=== PATIENT | female | born 1990 | race Caucasian/White ===

== ENCOUNTER 2016-08-20 16:58 | Outpatient (CLI) | payer OTHER ==
[2016-08-20 17:33] LABS: APPEARANCE,URINE SLIGHTLY-CLOUDY; BILIRUBIN,URINE NEGATIVE (NEGATIVE); GLUCOSE, URINE NEGATIVE (NEGATIVE); KETONES,URINE NEGATIVE (NEGATIVE); LEUKOCYTE ESTERASE,URINE NEGATIVE (NEGATIVE); NITRITE,URINE NEGATIVE (NEGATIVE); PROTEIN,URINE NEGATIVE (NEGATIVE); URINE SPECIFIC GRAVITY 1.008; UROBILINOGEN,URINE NEGATIVE mg/dL (<2.0)
[2016-08-20 17:40] LABS: WBC,URINE 0-1 /HPF
[2016-08-20 17:47] LABS: URINE BARBITURATES SCREEN NEGATIVE; URINE METHADONE SCREEN NEGATIVE; URINE OPIATES LOW NEGATIVE; URINE PHENCYCLIDINE SCREEN NEGATIVE
[2016-08-20 18:08] LABS: ABSOLUTE BASOPHILS # (AUTO) 0.1 10^3/uL (0.0-0.2); ABSOLUTE EOSINOPHILS # (AUTO) 0.3 10^3/uL (0.0-0.6); ABSOLUTE LYMPHOCYTES (AUTO) 2.4 10^3/uL (0.5-4.7); ABSOLUTE MONOCYTES (AUTO) 0.7 10^3/uL (0.1-1.4); ABSOLUTE NEUT (AUTO) 8.9 10^3/uL (1.7-8.2); BASOPHILS % (AUTO) 0.5 % (0-2); EOSINOPHILS % (AUTO) 2.1 % (0-6); HEMATOCRIT 32.8 % (36.0-47.0); HEMOGLOBIN 10.9 g/dL (12.0-15.5); HGB HCT DIFFERENCE -0.1; LYMPHOCYTES % (AUTO) 19.6 % (13-45); MEAN CORPUSCULAR HEMOGLOBIN 30.3 pg (27.0-33.4); MEAN CORPUSCULAR HGB CONC 33.3 g/dL (32.0-36.0); MEAN CORPUSCULAR VOLUME 91 fl (80-97); MONOCYTES % (AUTO) 5.8 % (3-13); RED BLOOD COUNT 3.61 10^6/uL (3.72-5.28); RED CELL DISTRIBUTION WIDTH 13.5 % (11.5-14.0); WHITE BLOOD COUNT 12.4 10^3/uL (4.0-10.5)
[2016-08-20 18:33] LABS: ALANINE AMINOTRANSFERASE 28 U/L (9-52); ALBUMIN 3.4 g/dL (3.5-5.0); ALKALINE PHOSPHATASE 88 U/L (38-126); ANION GAP 10 (5-19); ASPARTATE AMINO TRANSFERASE 18 U/L (14-36); BILIRUBIN,DIRECT 0.2 mg/dL (0.0-0.4); BILIRUBIN,TOTAL 0.6 mg/dL (0.2-1.3); BLOOD UREA NITROGEN 6 mg/dL (7-20); CARBON DIOXIDE 21 mmol/L (22-30); CHLORIDE 106 mmol/L (98-107); CREATININE RESULT 0.48 mg/dL (0.52-1.25); GLUCOSE 90 mg/dL (75-110); LDH 328 U/L (313-618); POTASSIUM 3.4 mmol/L (3.6-5.0); SODIUM 137.1 mmol/L (137-145); TOTAL PROTEIN 6.4 g/dL (6.3-8.2); URIC ACID 3.9 mg/dL (2.5-6.2)
--- NOTE | 2016-08-20 18:56 | Non Stress Test Report ---
Non Stress Test Datetime Report Generated by CPN: 08/20/2016 18:56 DEMOGRAPHIC Test Number: 1 EGA NST: 36.1 INDICATION Indication for Study: Ordered by Provider MONITORING Monitor Explained: Monitor Explained; Test Explained; Patient Verbalized Understanding Time on Monitor: 08/20/2016 17:18 Time off Monitor: 08/20/2016 17:59 NST Duration: 41 NST INTERVENTIONS NST Interventions: None Physician Notified NST: Dr. Ballard BABY A: [id number] BABY A Movement : Present Contraction Frequency : Irreg FHR Baseline : 135 Accelerations : 15X15 Decelerations : None Variability : Moderate 6-25bpm NST Review: Meets Criteria for Reactive NST NST Review and Verified By : Clarence Valdivia RN NST Results: Reactive NST REPORT Report Trigger: Send Report
--- NOTE | 2016-09-13 08:43 | L&D Progress Notes ---
PROGRESS NOTES Datetime Report Generated by CPN: 09/13/2016 08:43 PROGRESS NOTE Impression: Reassuring Heart Rate; Gest. HTN/PreEclampsia/Eclampsia Plan: Continue Present Management; Induction Informed Consent Obtained: Vaginal Delivery Vital Signs : Reviewed; Within Normal Limits Comment: Resting without c/o, Cat 1 strip, IOL for PIH, plans epidural and bottle feeding, hsb at BS, irregular uc's VAGINAL EXAM Dilatation: 2 Effacement: 90 Station: -1 MEMBRANES Membranes: Intact Membranes: Intact FETUS A FHR - Baseline: 150 Monitoring: External US Variability: Moderate 6-25bpm Accelerations: 15X15 Decelerations: None : 39.4 : 39.4 Presentation: Vertex SIGNATURE SIGNATURE: [id number];[id number] SIGNATURE: [id number] Assignment: Lupe Alberto MD Signature: with User ID: [email or web address] : with User ID: [email or web address]
--- NOTE | 2016-09-13 12:28 | L&D Progress Notes ---
PROGRESS NOTES Datetime Report Generated by CPN: 09/13/2016 12:28 PROGRESS NOTE Comment: C/O of increase uc's, VE 4/90/vtx/0, AROM, clear fluid, requesting epidural. Cat 1 strip, uc's q 3-4 FETUS A FHR - Baseline: 155 Monitoring: External US Variability: Moderate 6-25bpm Decelerations: None FETUS C SIGNATURE: [id number];[id number] Assignment: Lupe Alberto MD Signature: with User ID: [email or web address] : with User ID: [email or web address]
--- NOTE | 2016-09-13 13:56 | L&D Progress Notes ---
PROGRESS NOTES Datetime Report Generated by CPN: 09/13/2016 13:56 PROGRESS NOTE Vital Signs : Reviewed; Within Normal Limits Comment: epidural completed, no cervical change, no relief from epidural, breathing with uc's, Cat 1 strip with early decelerations Will medicate with Nubain FETUS C SIGNATURE: [id number];[id number] Assignment: Lupe Alberto MD Signature: with User ID: [email or web address] : with User ID: [email or web address]
== END 2016-08-20 18:50 | disposition home or self-care (01) ==
LOC: LC 16:58
PROVIDERS: ATTEND Student in an Organized Health Care Education/Training Program
PROC: 4A1HXCZ Monitoring of Products of Conception, Cardiac Rate, External Approach (ICD-10-PCS; principal; 2016-08-20)
DX: O47.03 False labor before 37 completed weeks of gestation, third trimester (principal); Z3A.36 36 weeks gestation of pregnancy
CPT/HCPCS: 36415; 59025; 80053; 80307; 81001; 83615; 84550; 85025

== ENCOUNTER 2016-09-13 06:01 | Inpatient (IN) | payer OTHER ==
[2016-09-13] MEDS ORDERED: RINGERS SOLUTION,LACTATED 1,000 ML IV PRN (06:10)
[2016-09-13] MEDS ORDERED: OXYTOCIN/NORMAL SALINE 1,000 ML IV PRN ×2 (06:10→15:01)
[2016-09-13] MEDS ORDERED: RINGERS SOLUTION,LACTATED 300 ML IV ONE (06:10)
[2016-09-13 07:09] LABS: ABSOLUTE EOSINOPHILS # (AUTO) 0.3 10^3/uL (0.0-0.6); ABSOLUTE LYMPHOCYTES (AUTO) 2.9 10^3/uL (0.5-4.7); ABSOLUTE MONOCYTES (AUTO) 0.7 10^3/uL (0.1-1.4); ABSOLUTE NEUT (AUTO) 8.9 10^3/uL (1.7-8.2); BASOPHILS % (AUTO) 0.3 % (0-2); HEMATOCRIT 33.6 % (36.0-47.0); HEMOGLOBIN 11.1 g/dL (12.0-15.5); HGB HCT DIFFERENCE -0.3; LYMPHOCYTES % (AUTO) 22.5 % (13-45); MEAN CORPUSCULAR HEMOGLOBIN 30.3 pg (27.0-33.4); MEAN CORPUSCULAR VOLUME 92 fl (80-97); MONOCYTES % (AUTO) 5.5 % (3-13); RED BLOOD COUNT 3.65 10^6/uL (3.72-5.28); RED CELL DISTRIBUTION WIDTH 13.9 % (11.5-14.0); SEGMENTED NEUTROPHILS % (AUTO) 69.7 % (42-78); WHITE BLOOD COUNT 12.7 10^3/uL (4.0-10.5)
[2016-09-13 07:16] LABS: ALANINE AMINOTRANSFERASE 19 U/L (9-52); ALBUMIN 3.3 g/dL (3.5-5.0); ALKALINE PHOSPHATASE 111 U/L (38-126); ANION GAP 11 (5-19); ASPARTATE AMINO TRANSFERASE 18 U/L (14-36); BILIRUBIN,DIRECT 0.2 mg/dL (0.0-0.4); BILIRUBIN,TOTAL 0.7 mg/dL (0.2-1.3); BLOOD UREA NITROGEN 7 mg/dL (7-20); CARBON DIOXIDE 18 mmol/L (22-30); CHLORIDE 107 mmol/L (98-107); CREATININE RESULT 0.48 mg/dL (0.52-1.25); GLUCOSE 135 mg/dL (75-110); LDH 328 U/L (313-618); POTASSIUM 3.8 mmol/L (3.6-5.0); SODIUM 136.4 mmol/L (137-145); TOTAL PROTEIN 6.2 g/dL (6.3-8.2); URIC ACID 4.1 mg/dL (2.5-6.2)
[2016-09-13] MEDS ORDERED: MISOPROSTOL 0.2 MG TABLET ONE (07:44)
[2016-09-13] MEDS ORDERED: LIDOCAINE 1% INJ-PF (10 MG/ML) 30 ML SDV ONE (07:45)
[2016-09-13] MEDS ORDERED: OXYTOCIN/NORMAL SALINE 20 UNIT/1,000 ML RTUINJ ONE (07:45)
[2016-09-13 11:09] LABS: APPEARANCE,URINE CLEAR; BILIRUBIN,URINE NEGATIVE (NEGATIVE); GLUCOSE, URINE NEGATIVE (NEGATIVE); KETONES,URINE NEGATIVE (NEGATIVE); LEUKOCYTE ESTERASE,URINE NEGATIVE (NEGATIVE); NITRITE,URINE NEGATIVE (NEGATIVE); PROTEIN,URINE NEGATIVE (NEGATIVE); URINE SPECIFIC GRAVITY 1.008; UROBILINOGEN,URINE NEGATIVE mg/dL (<2.0)
[2016-09-13 12:04] LABS: URINE BARBITURATES SCREEN NEGATIVE; URINE METHADONE SCREEN NEGATIVE; URINE OPIATES LOW NEGATIVE; URINE PHENCYCLIDINE SCREEN NEGATIVE
[2016-09-13] MEDS ORDERED: EPHEDRINE SULFATE INJ 50 MG/1 ML AMPULE ONE (12:53)
[2016-09-13] MEDS ORDERED: FENTANYL CITRATE INJ/PF 100 MCG/2 ML AMPUL ONE (12:53)
[2016-09-13] MEDS ORDERED: PHENYLEPHRINE HCL INJ/PF 10 MG/1 ML SDV ONE (12:53)
[2016-09-13] MEDS ORDERED: FENTANYL/BUPIVACAINE/NS/PF 200 MCG/100 ML RTUINJ EPI ONE (12:53)
[2016-09-13] MEDS ORDERED: BUPIVACAINE HCL 0.25 % INJ/PF (2.5 MG/1 ML) 30 ML VIAL ONE (12:54)
[2016-09-13] MEDS ORDERED: NALBUPHINE HCL INJ 10 MG/1 ML AMPULE INJ ONE (13:58)
[2016-09-13] MEDS ORDERED: NALBUPHINE HCL INJ 10 MG/1 ML AMPULE ONE (14:04)
[2016-09-13] MEDS ORDERED: GLYCERIN/WITCH HAZEL LEAF 1 EACH MED..PAD TP PRN (15:01)
[2016-09-13] MEDS ORDERED: ACETAMINOPHEN 650 MG SUPP.RECT PR PRN (15:01)
[2016-09-13] MEDS ORDERED: DIPH/PERTUSS(ACELL)/TETANUS VAC/PF 0.5 ML SYR (>=10YO) IM PRN (15:01)
[2016-09-13] MEDS ORDERED: MAGNESIUM HYDROXIDE SUSP 30 ML UDCUP PO PRN (15:01)
[2016-09-13] MEDS ORDERED: BENZOCAINE/MENTHOL AEROSOL SPRAY 56 ML TOP PRN (15:01)
[2016-09-13] MEDS ORDERED: PROMETHAZINE HCL INJ 25 MG/1 ML VIAL IV PRN (15:01)
[2016-09-13] MEDS ORDERED: NA PHOS,M-B/NA PHOS,DI-BA (ADULT) 133 ML ENEMA PR PRN (15:01)
[2016-09-13] MEDS ORDERED: DIPHENHYDRAMINE HCL 25 MG CAPSULE PO PRN (15:01)
[2016-09-13] MEDS ORDERED: PROMETHAZINE HCL 25 MG TABLET PO PRN (15:01)
[2016-09-13] MEDS ORDERED: DIBUCAINE 1% OINTMENT 28 GM TP PRN (15:01)
[2016-09-13] MEDS ORDERED: MISOPROSTOL 0.2 MG TABLET PR ONE (15:01)
[2016-09-13] MEDS ORDERED: ACETAMINOPHEN WITH CODEINE #3 TABLET PO PRN (15:01)
[2016-09-13] MEDS ORDERED: PROMETHAZINE HCL 25 MG SUPP.RECT PR PRN (15:01)
[2016-09-13] MEDS ORDERED: PSEUDOEPHEDRINE HCL 30 MG TABLET PO PRN (15:01)
[2016-09-13] MEDS ORDERED: MEASLES,MUMPS&RUBELLA VACC/PF 0.5 ML VIAL SUBCUT PRN (15:01)
--- NOTE | 2016-09-13 17:11 | Admission Physical ---
Datetime Report Generated by CPN: 09/13/2016 17:11 CURRENT ADMISSION Chief Complaint: Scheduled Induction of Labor Indication for Induction: Gestational HTN Admit Plan: Admit to Unit; Initiate Labor Induction Protocol ALLERGIES Medication Allergies: No Medication Allergies: Latex, Natural Rubber/MO/IRRITATION TO S (07/19/2015) Latex: Latex Allergies OBSTETRICAL HISTORY EDC: 09/16/2016 00:00 : 3 Para: 2 Term: 2 : 0 SAB: 0 IAB: 0 Ectopic: 0 Livin Cesareans: 0 VBACs: 0 Multiple Births: 0 Gestational Diabetes: No Rh Sensitization: No Incompetent Cervix: No WINIFRED: No Infertility: No ART Treatment: No Uterine Anomaly: No IUGR: No Hx Previous C/S: No Macrosomia: No Hx Loss/Stillborn: No PIH: Yes Hx : No Placenta Previa/Abruption: No Depression/PP Depression: No PTL/PROM: No Post Hemorrhage: No Current Procedures: Ultrasound Obstetrical History Comments: G1- 2011, 39 weeks NVD baby boy G2- 2013, 39 wks, NVD baby girl G3- current SEE RECORDS Alcohol: No Marijuana : No Cocaine: No Other Illicit Drugs: No Cigarettes: Former Smoker. 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 Surgery: No Heart Disease: No Hosp/Surgery: No Autoimmune Disorder: No Anesthetic Complications: No Kidney Disease: No Abnormal Pap Smear: No Neuro/Epilepsy: No Psychiatric Disorders: No Other Medical Diseases: Yes Hepatitis/Liver Disease: No Significant Family History: No Varicosities/Phlebitis: No Trauma/Violence : No Thyroid Dysfunction: No Medical History Comments: Crohn's Disease- diet controlled INFECTIOUS HISTORY Gonorrhea: No Genital Herpes: No Chlamydia: No Tuberculosis: No Syphilis: No Hepatitis: No HIV/AIDS Exposure: No Rash or Viral Illness: No HPV: No PHYSICAL EXAM General: Normal HEENT: Normal Neurologic: Normal Thyroid: Deferred Heart: Normal Lungs: Normal Breast: Deferred Back: Normal Abdomen: Normal Genitourinary Exam: Normal Extremities: Normal DTRs: Normal Pelvic Type: Adequate Vital Signs: Reviewed; Within Normal Limits VAGINAL EXAM Dilatation: 2 Effacement: 90 Station: -1 MEMBRANES Membranes: Intact Membranes: Intact FETUS A EGA: 39.4 Monitoring: External US FHR- Baseline: 140 Variability: Moderate 6-25bpm Accelerations: 15X15 Decelerations: None FHR Category: Category I Presentation: Vertex PLANS FOR LABOR AND DELIVERY Labor and Delivery: None Pain Management: Epidural Feeding Preference: Formula Benefit of Breast Feed Discussed: Yes Circumcision: N/A INFORMED CONSENT Informed Consent Obtained: Vaginal Delivery Signature: with User ID: [email or web address]
[2016-09-13] MEDS: DOCUSATE SODIUM 100 MG CAPSULE PO SCH (19:01)
[2016-09-13] MEDS: FERROUS SULFATE 325 MG TABLET PO SCH (19:01)
[2016-09-13] MEDS: ACETAMINOPHEN WITH CODEINE #3 TABLET PO PRN (19:24)
[2016-09-13] MEDS: IBUPROFEN 800 MG TABLET PO SCH (21:42)
[2016-09-13] MEDS: FAMOTIDINE 20 MG TABLET PO SCH (21:42)
[2016-09-14] MEDS: IBUPROFEN 800 MG TABLET PO SCH ×3 (06:15→21:08)
[2016-09-14 07:50] LABS: HEMATOCRIT 36.2 % (36.0-47.0); HEMOGLOBIN 11.7 g/dL (12.0-15.5); HGB HCT DIFFERENCE -1.1; MEAN CORPUSCULAR HEMOGLOBIN 30.5 pg (27.0-33.4); MEAN CORPUSCULAR HGB CONC 32.3 g/dL (32.0-36.0); MEAN CORPUSCULAR VOLUME 94 fl (80-97); RED BLOOD COUNT 3.84 10^6/uL (3.72-5.28); RED CELL DISTRIBUTION WIDTH 14.1 % (11.5-14.0); WHITE BLOOD COUNT 15.1 10^3/uL (4.0-10.5)
--- NOTE | 2016-09-14 08:54 | PDOC PROGRESS REPORT ---
Subjective-OB Subjective: Post Delivery Day: 26 year old. Denies any needs at this time Physical Exam (OB) Vital Signs: Temp Pulse Resp BP Pulse Ox 98.1 F 97 16 112/75 99 09/14/16 07:36 09/14/16 07:36 09/14/16 07:36 09/14/16 07:36 09/14/16 07:36 Intake & Output 09/13/16 09/14/16 09/15/16 06:59 06:59 06:59 Weight 78.4 kg - PIH/Pre-Eclampsia DTR's: 1 + Clonus: Negative Headache: Absent Epigastric Pain: No Visual Changes: No - Lochia Lochia Amount: Small 10-25 ml Lochia Color: Rubra/Red - Abdomen Description: Soft, Round Hernia Present: No Bowel Sounds: Normoactive Flatus Presence: Absent Stool: No Fundal Description: Firm, Midline Fundal Height: u/u - u/2 Objective-Diagnostic Laboratory: 09/14/16 07:02 09/13/16 06:31 09/13/16 09/14/16 10:34 07:02 WBC 15.1 H RBC 3.84 Hgb 11.7 L Hct 36.2 MCV 94 MCH 30.5 MCHC 32.3 RDW 14.1 H Plt Count 225 Urine Color YELLOW Urine Appearance CLEAR Urine pH 7.0 Ur Specific Kelly 1.008 Urine Protein NEGATIVE Urine Glucose (UA) NEGATIVE Urine Ketones NEGATIVE Urine Blood NEGATIVE Urine Nitrite NEGATIVE Ur Leukocyte Esterase NEGATIVE Urine WBC (Auto) 0
[2016-09-14] MEDS: SENNOSIDES/DOCUSATE 8.6-50 MG 1 EACH TABLET PO SCH (09:34)
[2016-09-14] MEDS: FERROUS SULFATE 325 MG TABLET PO SCH ×2 (09:34→18:23)
[2016-09-14] MEDS: PRENATAL VITAMIN W-O CA NO5/FE FUMARATE/FA CAPSULE PO SCH (09:35)
[2016-09-14] MEDS: DOCUSATE SODIUM 100 MG CAPSULE PO SCH ×2 (09:35→18:23)
[2016-09-14] MEDS: FAMOTIDINE 20 MG TABLET PO SCH ×2 (10:25→21:08)
[2016-09-14] MEDS: ACETAMINOPHEN WITH CODEINE #3 TABLET PO PRN (15:36)
[2016-09-15] MEDS: IBUPROFEN 800 MG TABLET PO SCH (06:13)
[2016-09-15 09:15] VITALS: BP 118/65
[2016-09-15] MEDS: PRENATAL VITAMIN W-O CA NO5/FE FUMARATE/FA CAPSULE PO SCH (10:41)
[2016-09-15] MEDS: FAMOTIDINE 20 MG TABLET PO SCH (10:41)
[2016-09-15] MEDS: SENNOSIDES/DOCUSATE 8.6-50 MG 1 EACH TABLET PO SCH (10:41)
[2016-09-15] MEDS: DOCUSATE SODIUM 100 MG CAPSULE PO SCH (10:41)
[2016-09-15] MEDS: FERROUS SULFATE 325 MG TABLET PO SCH (10:42)
--- NOTE | 2016-09-15 10:48 | PDOC DISCHARGE SUMMARY ---
Final Diagnosis Discharge Date: 09/15/16 - Final Diagnosis (1) Gestational [-induced] hypertension without significant proteinuria , unspecified trimester Is this a current diagnosis for this admission?: Yes (2) History of Crohn's disease Is this a current diagnosis for this admission?: Yes (3) Is this a current diagnosis for this admission?: Yes (4) Vaginal delivery Is this a current diagnosis for this admission?: Yes Discharge Data - Discharge Medication Home Medications: Pnv No.122/Iron/Folic Acid [ Multi Tablet] 1 tab PO DAILY 08/20/16 Ibuprofen [Motrin 800 mg Tablet] 800 mg PO Q8HP PRN #60 tablet 09/15/16 Reason(s) for Admission: Induction of Labor Procedures: NST, Ultrasound Intrapartum Procedure(s): Spontaneous Vaginal Delivery - Diagnosis Test Laboratory: Temp Pulse Resp BP Pulse Ox 98.0 F 85 16 118/65 96 09/15/16 08:12 09/15/16 08:12 09/15/16 08:12 09/15/16 08:12 09/15/16 08:12 09/13/16 09/13/16 09/14/16 06:31 10:34 07:02 RBC 3.65 L 3.84 Hgb 11.1 L 11.7 L Hct 33.6 L 36.2 Urine Opiates Screen NEGATIVE - Discharge information/Instructions Discharge Activity: Activity As Tolerated, No Lifting Over 10 Pounds, No Lifting /Push/Pulling, Pelvic Rest, Slowly Increase Activity, No tub bath Discharge Diet: Regular Disposition: HOME, SELF-CARE Follow up with: [facility] in: 1, Weeks - blood pressure check
--- NOTE | 2016-09-19 10:56 | Delivery Summary ---
Del Sum A-C Datetime Report Generated by CPN: 09/19/2016 10:56 DELIVERY PERSONNEL DELIVERY PERSONNEL: [id number];[id number];[id number] DELIVERY PERSONNEL: [id number];[id number] DELIVERY PERSONNEL: [id number];[id number] DELIVERY PERSONNEL: [id number];[id number] DELIVERY PERSONNEL: [id number] Delivery Doctor:: Breann Brice CNM Labor and Delivery Nurse:: Brandi Higginbotham RN Nursery Nurse:: Nicole Angulo RN Nursery Nurse:: hiram brooks RN [facility] Products Assembler/HAT FORMING MACHINE OPERATOR: Regine Hester CNA II MATERNAL INFORMATION Delivery Anesthesia: Epidural Medications After Delivery: Pitocin Bolus-Please Comment; Pitocin Drip 20 Units/1000ml NSS Estimated Blood Loss (ml): 300 Maternal Complications: None Provider Comments: Progressed quickly after Nubain, strong urge to push. viable female from OA to PATRICK over intact perineum, baby placed on mothers abd, cord clamped and cut after 2 minutes. Spont delivery of grossly normal intact placenta, 3 VC EBL 300cc. Baby and mom remain in recovery in stable condition. Cytotec 600 mcg via rectum , massage and IV Pitocin (Annotations: Data stored by [facility] on behalf of user) LABOR SUMMARY EDC: 09/16/2016 00:00 No. Babies in Womb: 1 Attempted: No Labor Anesthesia: Epidural LABOR INFORMATION Reason for Induction: Other Reason for Induction- Other: PIH Onset of Labor: 09/13/2016 12:24 Complete Dilatation: 09/13/2016 14:30 Oxytocin: Induction Group B Beta Strep: Negative Antibiotics # of Doses: 0 Steroids Given: None Reason Steroids Not Administered: Not Applicable MEMBRANES Membranes Rupture Method: Artificial Rupture of Membranes: 09/13/2016 12:24 Length of Rupture (hr): 2.28 Amniotic Fluid Color: Clear Amniotic Fluid Color: Clear Amniotic Fluid Amount: Moderate Amniotic Fluid Amount: Small Amniotic Fluid Odor: None STAGES OF LABOR Stage 1 hr: 2 Stage 1 min: 6 Stage 2 hr: 0 Stage 2 min: 11 Stage 3 hr: 0 Stage 3 min: 5 Total Time in Labor hr: 2 Total Time in Labor min: 22 VAGINAL DELIVERY Episiotomy: None Episiotomy: Median Laceration Extension: N/A Laceration Type: None Laceration Repair: Not Applicable Sponge Count Correct: N/A Sponge Count Correct: N/A Sharps Count Correct: N/A CSECTION DELIVERY Primary Indication: N/A Secondary Indication: N/A BABY A INFORMATION Delivery Date/Time: 09/13/2016 14:41 Method of Delivery: Vaginal Method of Delivery: Vaginal Born in Route : No : N/A Forceps: N/A Vacuum Extraction: N/A Shoulder Dystocia : No PRESENTATION/POSITION BABY A Presentation: Cephalic Presentation: Cephalic Cephalic Presentation: Vertex Vertex Position: Right Occipital Anterior Breech Presentation: N/A PLACENTA INFORMATION BABY A Placenta Delivery Time : 09/13/2016 14:46 Placenta Method of Delivery: Spontaneous Placenta Method of Delivery: Spontaneous Placenta Status: Delivered SCORES BABY A Heart Rate 1 min: >100 bpm Resp Effort 1 min: Good Cry Reflex Irritability 1 min: Cough or Sneeze or Pulls Away Muscle Tone 1 min: Active Motion Color 1 min: Body [place], Extremities Blue Resuscitation Effort 1 min: Tactile Stimulation SCORE 1 MIN: 9 Heart Rate 5 min: >100 bpm Resp Effort 5 min: Good Cry Reflex Irritability 5 min: Cough or Sneeze or Pulls Away Muscle Tone 5 min: Active Motion Color 5 min: Body [place], Extremities Blue Resuscitation Effort 5 min: N/A SCORE 5 MIN: 9 Resuscitation Effort 10 min: N/A INFORMATION BABY A Gestational Age at Delivery: 39.4 Gestational Status: Full Term- 39- 40.6 Weeks Outcome : Liveborn Infant Condition : Stable Sex: Female Sex: Female IDENTIFICATION BABY A Verification Date/Time: 09/13/2016 15:03 ID Band Number: [id number] Mother's Name Verified: Yes Infant RN Verifying : Brandi Higginbotham, RN Additional Verifying Personnel: Brenna Love, RN WEIGHT/LENGTH BABY A Infant Birthweight (gm): 3370 Weight (lb): 7 Infant Weight (oz): 7 Length (in): 19.50 Infant Length (cm): 49.53 CORD INFORMATION BABY A No. Cord Vessels: 3 Nuchal Cord : N/A Cord Blood Taken: Yes-For Eval (Mom's Blood Type - or O+) Suction: None ASSESSMENT BABY A Complications: None Skin to Skin: Yes Skin to Skin Time (min): 64 Streetsweeper Operator/ALS Called : No Infant Care By: nursery nurses Transferred To: Nursery BABY B INFORMATION : N/A
== END 2016-09-15 12:23 | disposition home or self-care (01) | DRG 775 ==
LOC: LR 06:01 → 2S 17:09
PROVIDERS: ADMIT Specialist; ATTEND Specialist
PROC: 10E0XZZ Delivery of Products of Conception, External Approach (ICD-10-PCS; principal; 2016-09-13)
PROC: 10907ZC Drainage of Amniotic Fluid, Therapeutic from Products of Conception, Via Natural or Artificial Opening (ICD-10-PCS; 2016-09-13)
PROC: 3E033VJ Introduction of Other Hormone into Peripheral Vein, Percutaneous Approach (ICD-10-PCS; 2016-09-13)
PROC: 3E0234Z Introduction of Serum, Toxoid and Vaccine into Muscle, Percutaneous Approach (ICD-10-PCS; 2016-09-14)
DX: O13.4 Gestational [pregnancy-induced] hypertension without significant proteinuria, complicating childbirth (principal); O36.0930 Maternal care for other rhesus isoimmunization, third trimester, not applicable or unspecified; K50.90 Crohn's disease, unspecified, without complications; O99.62 Diseases of the digestive system complicating childbirth; Z3A.39 39 weeks gestation of pregnancy; Z37.0 Single live birth
CPT/HCPCS: 36415; 80053; 80307; 81001; 83615; 84550; 85025; 85027; 85461; 86592; 86850; 86900; 86901; 90715; 94760; J2300; J2370; J2590; J2790; J3010; J3490

== ENCOUNTER 2016-10-09 09:22 | Emergency (ER) | payer OTHER ==
[2016-10-09] MEDS ORDERED: LOPERAMIDE HCL 2 MG CAPSULE PO ONE (10:09)
[2016-10-09] MEDS ORDERED: IBUPROFEN 600 MG TABLET PO ONE (10:09)
--- NOTE | 2016-10-09 10:11 | ER Document Report ---
ED General - General Chief Complaint: Abdominal Pain Stated Complaint: ABDOMINAL PAIN,DIARRHEA,HEADACHE Time Seen by Provider: 10/09/16 10:03 Notes: 26-year-old female with history of Crohn's disease 1 month from delivery presents with intermittent lower abdominal pain crampy and sharp associated with copious diarrhea nonbloody for the past 24 hours. She ate last night. She has been drinking plenty of fluids and not nauseous or vomiting. She denies fever chills. She states that this does not feel like a Crohn's flare for her. There is no one else in the house. No recent antibiotics or foreign travel. TRAVEL OUTSIDE OF THE [place] IN LAST 30 DAYS: No - Related Data Allergies/Adverse Reactions: Latex, Natural Rubber Adverse Reaction (Intermediate, Verified 10/09/16 09:31) IRRITATION TO SKIN Past Medical History - Social History Smoking Status: Former Smoker Chew tobacco use (# tins/day): - 5 Frequency of alcohol use: None Drug Abuse: None Family History: None - Past Medical History Cardiac Medical History: Denies: Hx Coronary Artery Disease, Hx Heart Attack, Hx Hypertension Pulmonary Medical History: Denies: Hx Asthma, Hx Bronchitis, Hx COPD, Hx Pneumonia Neurological Medical History: Denies: Hx Cerebrovascular Accident, Hx Seizures Renal/ Medical History: Denies: Hx Peritoneal Dialysis GI Medical History: Reports: Hx Gastroesophageal Reflux Disease Musculoskeltal Medical History: Denies Hx Arthritis Surgical Hx: Negative - Immunizations Hx Diphtheria, Pertussis, Tetanus Vaccination: No Review of Systems - Review of Systems Notes: REVIEW OF SYSTEMS GEN: Denies fever, chills, weight loss ENT: Denies sore throat, nasal discharge, ear pain EYES: Denies blurry vision, eye pain, discharge CV: Denies chest pain, palpitations, edema RESP: Denies cough, shortness of breath, wheezing GI: Denies nausea vomiting MSK: Denies joint pain/swelling, edema, SKIN: Denies rash, skin lesions LYMPH: Denies swollen glands/lymph nodes NEURO: Denies headache, focal weakness or numbness, dizziness PSYCH: Denies depression, suicidal or homicidal ideation PHYSICAL EXAMINATION General: No acute distress, well-nourished playing with her baby in no acute distress. Head: Atraumatic, normocephalic ENT: Mouth normal, oropharynx moist, no exudates or tonsillar enlargement Eyes: Conjunctiva normal, pupils equal, lids normal Neck: No JVD, supple, no guarding CVS: Normal rate, regular rhythm, no murmurs Resp: No resp distress, equal and normal breath sounds bilaterally GI: Nondistended, soft, moderate delayed tenderness to palpation bilateral lower quadrants, no rebound or guarding Ext: No deformities, no edema, normal range of motion in upper and lower ext Back: No CVA or midline TTP Skin: No rash, warm Lymphatic: No lymphadeopathy noted Neuro: Awake, alert. Face symmetric. GCS 15. Physical Exam - Vital signs Vitals: Temp Pulse Resp BP Pulse Ox 98.6 F 106 H 16 125/86 H 97 10/09/16 09:28 10/09/16 09:28 10/09/16 09:28 10/09/16 09:28 10/09/16 09:28 Course - Re-evaluation Re-evalutation: 10/09/16 10:10 This is a 26-year-old female presenting with crampy abdominal pain and diarrhea most likely reflective of foodborne illness versus gastroenteritis. She has some nonfocal abdominal tenderness, and despite describing her pain is severe appears quite well and in no acute pain especially when moving about the gurney. She does not feel like this is a Crohn's flare. I will check labs give her some Imodium and ibuprofen but I do not believe she has appendicitis, abscess or other inflammation right related to Crohn's which would require imaging or specific treatment at this time. 10/09/16 10:47 Patient's lab results are resulted normal. Patient will be discharged with Imodium and Bentyl. She is given strict return precautions given her history of Crohn's but given her exam and labs and vitals today do not believe she has anything infectious or inflammatory going on. I have discussed with the patient there likely diagnosis, aftercare plan, follow -up plans and my usual and customary return precautions. They verbalized understanding of this. 10/09/16 10:51 - Vital Signs Vital signs: Temp Pulse Resp BP Pulse Ox 98.6 F 106 H 16 125/86 H 97 10/09/16 09:28 10/09/16 09:28 10/09/16 09:28 10/09/16 09:28 10/09/16 09:28 - Laboratory Result Diagrams: 10/09/16 09:56 10/09/16 09:56 Laboratory results interpreted by me: 10/09/16 10/09/16 10/09/16 09:56 09:56 10:27 Seg Neutrophils % 84.1 H Lymphocytes % 10.8 L Total Bilirubin 1.4 H Urine Blood SMALL H Ur Leukocyte Esterase SMALL H Discharge - Discharge Clinical Impression: Diarrhea Qualifiers: Diarrhea type: unspecified type Qualified Code(s): R19.7 - Diarrhea, unspecified Condition: Good Disposition: HOME, SELF-CARE Instructions: Abdominal Pain ([facility]), Antispasmodics ([facility]) Prescriptions: Dicyclomine HCl [Bentyl 10 mg Capsule] 1 cap PO TID #30 cap Loperamide HCl [Imodium A-D] 2 mg PO TID PRN 3 Days PRN Reason:
[2016-10-09 10:34] LABS: ALANINE AMINOTRANSFERASE 27 U/L (9-52); ALBUMIN 4.4 g/dL (3.5-5.0); ALKALINE PHOSPHATASE 81 U/L (38-126); ANION GAP 12 (5-19); ASPARTATE AMINO TRANSFERASE 21 U/L (14-36); BILIRUBIN,DIRECT 0.3 mg/dL (0.0-0.4); BILIRUBIN,TOTAL 1.4 mg/dL (0.2-1.3); BLOOD UREA NITROGEN 8 mg/dL (7-20); CALCIUM 9.5 mg/dL (8.4-10.2); CARBON DIOXIDE 23 mmol/L (22-30); CHLORIDE 105 mmol/L (98-107); CREATININE RESULT 0.84 mg/dL (0.52-1.25); GLUCOSE 106 mg/dL (75-110); LIPASE 115.4 U/L (23-300); POTASSIUM 3.9 mmol/L (3.6-5.0); SODIUM 139.7 mmol/L (137-145); TOTAL PROTEIN 7.6 g/dL (6.3-8.2)
[2016-10-09 10:42] LABS: ABSOLUTE LYMPHOCYTES (AUTO) 0.9 10^3/uL (0.5-4.7); ABSOLUTE MONOCYTES (AUTO) 0.4 10^3/uL (0.1-1.4); ABSOLUTE NEUT (AUTO) 7.3 10^3/uL (1.7-8.2); BASOPHILS % (AUTO) 0.4 % (0-2); EOSINOPHILS % (AUTO) 0.5 % (0-6); HEMOGLOBIN 13.9 g/dL (12.0-15.5); HGB HCT DIFFERENCE 1.7; LYMPHOCYTES % (AUTO) 10.8 % (13-45); MEAN CORPUSCULAR HGB CONC 34.6 g/dL (32.0-36.0); MONOCYTES % (AUTO) 4.2 % (3-13); RED BLOOD COUNT 4.47 10^6/uL (3.72-5.28); RED CELL DISTRIBUTION WIDTH 13.3 % (11.5-14.0); SEGMENTED NEUTROPHILS % (AUTO) 84.1 % (42-78); WHITE BLOOD COUNT 8.6 10^3/uL (4.0-10.5)
[2016-10-09 10:44] LABS: MEAN CORPUSCULAR VOLUME 90 fl (80-97)
[2016-10-09 10:45] LABS: APPEARANCE,URINE SLIGHTLY-CLOUDY; BILIRUBIN,URINE NEGATIVE (NEGATIVE); GLUCOSE, URINE NEGATIVE (NEGATIVE); KETONES,URINE NEGATIVE (NEGATIVE); LEUKOCYTE ESTERASE,URINE SMALL (NEGATIVE); NITRITE,URINE NEGATIVE (NEGATIVE); PROTEIN,URINE NEGATIVE (NEGATIVE); URINE SPECIFIC GRAVITY 1.015; UROBILINOGEN,URINE NEGATIVE mg/dL (<2.0)
[2016-10-09 11:11] VITALS: BP 109/68
== END 2016-10-09 11:10 | disposition home or self-care (01) ==
LOC: ER 09:22
DX: R10.9 Unspecified abdominal pain (principal); R19.7 Diarrhea, unspecified; R51 Headache; Z87.891 Personal history of nicotine dependence
CPT/HCPCS: 36415; 80053; 81001; 83690; 85025; 99284

== ENCOUNTER 2016-10-10 19:25 | Inpatient (IN) | payer OTHER ==
[2016-10-10 20:36] LABS: ABSOLUTE LYMPHOCYTES (AUTO) 1.5 10^3/uL (0.5-4.7); ABSOLUTE MONOCYTES (AUTO) 0.5 10^3/uL (0.1-1.4); ABSOLUTE NEUT (AUTO) 3.9 10^3/uL (1.7-8.2); BASOPHILS % (AUTO) 0.6 % (0-2); EOSINOPHILS % (AUTO) 0.7 % (0-6); HEMATOCRIT 36.9 % (36.0-47.0); HGB HCT DIFFERENCE 2.1; LYMPHOCYTES % (AUTO) 24.9 % (13-45); MEAN CORPUSCULAR HEMOGLOBIN 30.8 pg (27.0-33.4); MEAN CORPUSCULAR HGB CONC 35.2 g/dL (32.0-36.0); MEAN CORPUSCULAR VOLUME 88 fl (80-97); MONOCYTES % (AUTO) 7.8 % (3-13); RED BLOOD COUNT 4.22 10^6/uL (3.72-5.28); RED CELL DISTRIBUTION WIDTH 13.1 % (11.5-14.0); WHITE BLOOD COUNT 5.9 10^3/uL (4.0-10.5)
[2016-10-10] MEDS ORDERED: NORMAL SALINE 1000 ML 1,000 ML IV ONE (20:53)
--- NOTE | 2016-10-10 21:02 | ER Document Report ---
ED General - General Chief Complaint: Abdominal Pain Stated Complaint: ABDOMINAL PAIN Time Seen by Provider: 10/10/16 20:14 Notes: Patient is a 26-year-old female with a past medical history of Crohn's disease not currently on any immune suppressive who presents with 4-5 days of progressively worsening diffuse abdominal pain with associated diarrhea. She does describe her abdominal pain as a severe, almost constant, cramping pain. She was seen in the emergency department yesterday and at that time sent home with Imodium and Bentyl which she states has not improved her symptoms. Nothing seems to worsen her symptoms. She denies a history of similar symptoms in the past and states this does not feel prior Crohn's flares although her last flare was approximately 5 years ago. She has not spoken to her senior energy trader regarding her symptoms today. She denies any vomiting but does state that it is difficult to tolerate oral intake as anytime she eats or drinks anything it immediately prompted her to have severe diarrhea with associated abdominal cramping. TRAVEL OUTSIDE OF THE [place] IN LAST 30 DAYS: No - Related Data Allergies/Adverse Reactions: Latex, Natural Rubber Adverse Reaction (Intermediate, Verified 10/09/16 09:31) IRRITATION TO SKIN Past Medical History - General Information source: Patient - Social History Smoking Status: Never Smoker Frequency of alcohol use: None Drug Abuse: None Lives with: Spouse/Significant other Family History: Reviewed & Not Pertinent Patient has suicidal ideation: No Patient has homicidal ideation: No - Past Medical History Cardiac Medical History: Denies: Hx Coronary Artery Disease, Hx Heart Attack, Hx Hypertension Pulmonary Medical History: Denies: Hx Asthma, Hx Bronchitis, Hx COPD, Hx Pneumonia Neurological Medical History: Denies: Hx Cerebrovascular Accident, Hx Seizures Renal/ Medical History: Denies: Hx Peritoneal Dialysis GI Medical History: Reports: Hx Gastroesophageal Reflux Disease Musculoskeltal Medical History: Denies Hx Arthritis - Immunizations Hx Diphtheria, Pertussis, Tetanus Vaccination: No Review of Systems - Review of Systems Notes: Constitutional: Negative for fever. HENT: Negative for sore throat. Eyes: Negative for visual changes. Cardiovascular: Negative for chest pain. Respiratory: Negative for shortness of breath. Gastrointestinal: Positive for abdominal pain diarrhea Genitourinary: Negative for dysuria. Musculoskeletal: Negative for back pain. Skin: Negative for rash. Neurological: Negative for headaches, weakness or numbness. 10 point ROS negative except as marked above and in HPI. Physical Exam - Vital signs Vitals: Temp Pulse BP Pulse Ox 99.1 F 106 H 123/76 98 10/10/16 19:43 10/10/16 19:43 10/10/16 19:43 10/10/16 19:43 Interpretation: Tachycardic Notes: PHYSICAL EXAMINATION: GENERAL: Appears uncomfortable but in no acute distress HEAD: Atraumatic, normocephalic. EYES: Pupils equal round and reactive to light, extraocular movements intact, sclera anicteric, conjunctiva are normal. ENT: nares patent, oropharynx clear without exudates. Dry mucous membranes. NECK: Normal range of motion, supple without lymphadenopathy LUNGS: Breath sounds clear to auscultation bilaterally and equal. No wheezes rales or rhonchi. HEART: Regular rate and rhythm without murmurs ABDOMEN: Soft, diffuse tenderness most focal to the right lower quadrant. Bowel sounds are hyperactive. Voluntary guarding throughout again most focal in the lower quadrants. EXTREMITIES: Normal range of motion, no pitting or edema. No cyanosis. NEUROLOGICAL: No focal neurological deficits. Moves all extremities spontaneously and on command. PSYCH: Normal mood, normal affect. SKIN: Warm, Dry, normal turgor, no rashes or lesions noted. Course - Re-evaluation Re-evalutation: 10/10/16 20:55 Patient presents with progressively worsening abdominal pain over the last 36 hours. Patient appears to be acutely uncomfortable, holding her abdomen. Abdominal exam does show focal right lower and suprapubic abdominal tenderness with rebound tenderness. She does have voluntary guarding throughout but again is most focal in the right lower quadrant. Vitals at time of assessment are within normal limits. Labs reviewed from yesterday are unremarkable including a negative test and negative urinalysis. Primary concern at this time is for possible acute appendicitis, regional colitis in the setting of Crohn's flare with an associated ileus, low clinical suspicion for acute ovarian pathology given history. Will obtain CT abdomen pelvis, labs, provide IV fluids and pain control and reassess 2300 CT abdomen pelvis does demonstrate diffuse colonic inflammation consistent with acute Crohn's flare. Laboratories otherwise unremarkable. Patient's pain has been controlled with morphine and saline. IV Solu-Medrol has been initiated. Patient has been admitted to Dr. Fam the hospitalist media production operator. - Vital Signs Vital signs: Temp Pulse Resp BP Pulse Ox 98.6 F 88 14 95/46 L 96 10/11/16 01:32 10/11/16 01:32 10/11/16 01:32 10/11/16 01:32 10/11/16 01:32 - Laboratory Result Diagrams: 10/10/16 20:23 10/10/16 20:23 Laboratory results interpreted by me: 10/10/16 20:23 Sodium 135.8 L Potassium 3.2 L BUN 6 L Glucose 113 H Total Bilirubin 1.5 H - Diagnostic Test Radiology reviewed: Reports reviewed Discharge - Discharge Clinical Impression: Crohn's colitis Qualifiers: Digestive disease complication type: unspecified complication Qualified Code(s) : K50.119 - Crohn's disease of large intestine with unspecified complications Abdominal pain Qualifiers: Abdominal location: generalized Qualified Code(s): R10.84 - Generalized abdominal pain Diarrhea Qualifiers: Diarrhea type: unspecified type Qualified Code(s): R19.7 - Diarrhea, unspecified Condition: Fair Disposition: ADMITTED INPATIENT Admitting Provider: David Fam
[2016-10-10 21:03] LABS: ALANINE AMINOTRANSFERASE 34 U/L (9-52); ALBUMIN 3.8 g/dL (3.5-5.0); ALKALINE PHOSPHATASE 67 U/L (38-126); ANION GAP 11 (5-19); ASPARTATE AMINO TRANSFERASE 28 U/L (14-36); BILIRUBIN,DIRECT 0.3 mg/dL (0.0-0.4); BILIRUBIN,TOTAL 1.5 mg/dL (0.2-1.3); BLOOD UREA NITROGEN 6 mg/dL (7-20); CARBON DIOXIDE 22 mmol/L (22-30); CHLORIDE 103 mmol/L (98-107); CREATININE RESULT 0.78 mg/dL (0.52-1.25); GLUCOSE 113 mg/dL (75-110); LIPASE 96.4 U/L (23-300); POTASSIUM 3.2 mmol/L (3.6-5.0); SODIUM 135.8 mmol/L (137-145); TOTAL PROTEIN 6.7 g/dL (6.3-8.2)
[2016-10-10] MEDS: MORPHINE SULFATE 10 MG/ML INJ IV PRN (21:36)
--- NOTE | 2016-10-10 23:01 | RADIOLOGY REPORT (SQ) ---
EXAM DESCRIPTION: CT ABD/PELVIS WITH IV ONLY COMPLETED DATE/TIME: 10/10/2016 10:46 pm REASON FOR STUDY: eval appendicitis COMPARISON: None. TECHNIQUE: CT scan of the abdomen and pelvis performed using helical scanning technique with dynamic intravenous contrast injection. No oral contrast. Images reviewed with lung, soft tissue, and bone windows. Reconstructed coronal and sagittal MPR images reviewed. Delayed images for evaluation of the urinary system also acquired. All images stored on PACS. All CT scanners at this facility use dose modulation, iterative reconstruction, and/or weight based d osing when appropriate to reduce radiation dose to as low as reasonably achievable (ALARA). [facility]: Dose Right [facility]: CareDose [facility]: Dose Right [facility]: Teradose 4D [facility]: [employer] Dynamics CONTRAST TYPE AND DOSE: contrast/concentration: Isovue 370.00 mg/ml; Total Contrast Delivered: 71.0 ml; Total Saline Delivered: 66.0 ml RENAL FUNCTION: Creatinine 0.78 RADIATION DOSE: Up-to-date CT equipment and radiation dose reduction techniques were employed. CTDIv ol: 6.1 - 8.6 mGy. DLP: 723 mGy-cm.. LIMITATIONS: None. FINDINGS: LOWER CHEST: No significant findings. No nodules or infiltrates. LIVER: Normal size. No masses. No dilated ducts. SPLEEN: Normal size. No focal lesions. PANCREAS: No masses. No significant calcifications. No adjacent inflammation or peripancreatic fluid collections. Pancreatic duct not dilated. GALLBLADDER: No identified stones by CT criteria. No inflammatory changes to suggest cholecystitis. ADRENAL GLANDS: No significant masses or asymmetry. RIGHT KIDNEY AND URETER: No solid masses. No significant calcifications. No hydronephrosis or hyd roureter. LEFT KIDNEY AND URETER: No solid masses. No significant calcifications. No hydronephrosis or hydr oureter. AORTA AND VESSELS: No aneurysm. No dissection. Renal arteries, SMA, celiac without stenosis. RETROPERITONEUM: No retroperitoneal adenopathy, hemorrhage or masses. BOWEL AND PERITONEAL CAVITY: There is diffuse thickening of the baires of the cecum and ascending colo n to the level of the hepatic flexure. There is diffuse thickening of the baires of distal ileum exte nding proximally from the ileocecal valve. The appearance would suggest an inflammatory or infectiou s process. The possibility of Crohn's disease should be considered. APPENDIX: Normal. PELVIS: No mass. No free fluid. Normal bladder. ABDOMINAL WALL: No masses. No hernias. BONES: No significant or acute findings. OTHER: No other significant finding. IMPRESSION: Diffuse thickening of the baires of the cecum and mass ending colon to the level of the h epatic flexure and thickening of the baires of the distal ileum extending proximally from the ileoceca l valve. The appearance would suggest an inflammatory or infectious process. The possibility of Fuse As[employer]er hn's disease should be considered. Other findings as noted above TECHNICAL DOCUMENTATION: JOB ID: [id number] Quality ID # [id number]: Final reports with documentation of one or more dose reduction techniques (e.g., Au tomated exposure control, adjustment of the mA and/or kV according to patient size, use of iterative reconstruction technique) 2010 [employer]- All Rights Reserved
[2016-10-10] MEDS ORDERED: METHYLPREDNISOLONE INJ 125 MG/2 ML SDV IV ONE (23:04)
[2016-10-11] MEDS: MORPHINE SULFATE 10 MG/ML INJ IV PRN ×3 (00:11→08:27)
[2016-10-11] MEDS ORDERED: ACETAMINOPHEN 325 MG TABLET PO PRN (00:21)
[2016-10-11] MEDS ORDERED: ONDANSETRON HCL INJ/PF 4 MG/2 ML SDV IV PRN (00:21)
[2016-10-11] MEDS ORDERED: LOPERAMIDE HCL 2 MG CAPSULE PO PRN (00:24)
[2016-10-11] MEDS ORDERED: SULFASALAZINE 500 MG TABLET.DR PO ONE ×2 (01:00→02:19)
[2016-10-11] MEDS: POTASSI CL 20 MEQ/50 ML RIDER 20 MEQ/50 ML RTUPB IV SCH ×3 (02:08→06:29)
--- NOTE | 2016-10-11 03:43 | PDOC H&P ---
History of Present Illness Admission Date/PCP: 10/11/16 00:21 Patient complains of: Abdominal pain History of Present Illness: FAMILIA CUEVAS is a 26 year old female with a past medical history of Crohn' s disease and mixed diarrhea, constipation predominant irritable bowel syndrome. He has been her usual state of health until approximately 72 hours prior to presentation noting nausea vomiting and diarrhea unable to tolerate p.o. Contents of vomitus and diarrhea with without blood. She denies any new medications though dietary indiscretion she has not had a flare in approximately 5 years. In the emergency room she has a CT abdomen pelvis with marked inflammation of the cecum to the hepatic flexure strongly suggestive of Crohn's colitis. She started on IV Solu-Medrol and IV fluids and referred to the hospital for admission. Past Medical History Cardiac Medical History: Denies: Coronary Artery Disease, Myocardial Infarction, Hypertension Pulmonary Medical History: Denies: Asthma, Bronchitis, Chronic Obstructive Pulmonary Disease (COPD), Pneumonia Neurological Medical History: Denies: Seizures GI Medical History: Reports: Crohn's Disease, Gastroesophageal Reflux Disease Musculoskeltal Medical History: Denies: Arthritis Psychiatric Medical History: Reports: Tobacco Dependency Hematology: Reports: Anemia - IRON LOW Social History Information Source: Patient Lives with: Spouse/Significant other Smoking Status: Current Every Day Smoker Cigarettes Packs Per Day: 0.5 Number of Years Smokin Frequency of Alcohol Use: None Hx Recreational Drug Use: No Hx Prescription Drug Abuse: No Family History Family History: None Parental Family History Reviewed: Yes Children Family History Reviewed: Yes Sibling(s) Family History Reviewed.: Yes Medication/Allergy Home Medications: Pnv No.122/Iron/Folic Acid [ Multi Tablet] 1 tab PO DAILY 08/20/16 Ibuprofen [Motrin 800 mg Tablet] 800 mg PO Q8HP PRN #60 tablet 09/15/16 Dicyclomine HCl [Bentyl 10 mg Capsule] 1 cap PO TID #30 cap 10/09/16 Loperamide HCl [Imodium A-D] 2 mg PO TID PRN 3 Days 10/09/16 Allergies/Adverse Reactions: Latex, Natural Rubber Adverse Reaction (Intermediate, Verified 10/09/16 09:31) IRRITATION TO SKIN Review of Systems Constitutional: PRESENT: anorexia, fatigue. ABSENT: fever(s) Eyes: ABSENT: visual disturbances Ears: ABSENT: hearing changes Cardiovascular: ABSENT: chest pain, dyspnea on exertion, edema, orthropnea, palpitations Respiratory: ABSENT: cough, hemoptysis Gastrointestinal: PRESENT: abdominal pain, bloating, diarrhea, nausea, vomiting. ABSENT: constipation Genitourinary: ABSENT: dysuria, hematuria Musculoskeletal: ABSENT: joint swelling Integumentary: ABSENT: rash, wounds Neurological: ABSENT: abnormal gait, abnormal speech, confusion, dizziness, focal weakness, syncope Psychiatric: ABSENT: anxiety, depression, homidical ideation, suicidal ideation Endocrine: ABSENT: cold intolerance, heat intolerance, polydipsia, polyuria Hematologic/Lymphatic: ABSENT: easy bleeding, easy bruising Physical Exam Vital Signs: Temp Pulse Resp BP Pulse Ox 98.6 F 88 14 95/46 L 96 10/11/16 01:32 10/11/16 01:32 10/11/16 01:32 10/11/16 01:32 10/11/16 01:32 Intake & Output 10/09/16 10/10/16 10/11/16 11:59 11:59 11:59 Intake Total 250 Balance 250 Weight 69.9 kg General appearance: PRESENT: cooperative, mild distress Head exam: PRESENT: atraumatic, normocephalic Eye exam: PRESENT: conjunctiva pink, EOMI, PERRLA. ABSENT: scleral icterus Ear exam: PRESENT: normal external ear exam Mouth exam: PRESENT: moist, tongue midline Neck exam: ABSENT: carotid bruit, JVD, lymphadenopathy, thyromegaly Respiratory exam: PRESENT: clear to auscultation bere. ABSENT: rales, rhonchi, wheezes Cardiovascular exam: PRESENT: RRR. ABSENT: diastolic murmur, rubs, systolic murmur Pulses: PRESENT: normal dorsalis pedis pul Vascular exam: PRESENT: normal capillary refill GI/Abdominal exam: PRESENT: distended, hyperactive bowel sounds, soft, tenderness - Right upper quadrant tenderness. ABSENT: ascites, diminished bowel sounds, firm, guarding, hernia Rectal exam: PRESENT: deferred Extremities exam: PRESENT: full ROM. ABSENT: calf tenderness, clubbing, pedal edema Neurological exam: PRESENT: alert, awake, oriented to person, oriented to place , oriented to time, oriented to situation, CN II-XII grossly intact. ABSENT: motor sensory deficit Psychiatric exam: PRESENT: appropriate affect, normal mood. ABSENT: homicidal ideation, suicidal ideation Skin exam: PRESENT: dry, intact, warm. ABSENT: cyanosis, rash Results Impressions: Abdomen/Pelvis CT 10/10/16 20:53 IMPRESSION: Diffuse thickening of the baires of the cecum and mass ending colon to the level of the hepatic flexure and thickening of the baires of the distal ileum extending proximally from the ileocecal valve. The appearance would suggest an inflammatory or infectious process. The possibility of Crohn's disease should be considered. Other findings as noted above Assessment & Plan - Diagnosis (1) Crohn's colitis Is this a current diagnosis for this admission?: YesPlan: Symptomatic management, IV Solu-Medrol every 8 hours, sulfasalazine, reevaluate clinical condition with clear liquid p.o. challenge, consideration of GI consultation (2) Abdominal pain Is this a current diagnosis for this admission?: YesPlan: Symptomatic management, correction of the underlying cause (3) Nausea and vomiting Is this a current diagnosis for this admission?: YesPlan: Symptomatic management with correction of the underlying cause. (4) Hypokalemia Is this a current diagnosis for this admission?: YesPlan: Evaluate magnesium level replete and recheck - Time Time Spent: 50 to 70 Minutes - Inpatient Certification Medical Necessity: Need Close Monitoring Due to Risk of Patient Decompensation
[2016-10-11] MEDS ORDERED: METHYLPREDNISOLONE INJ 125 MG/2 ML SDV IV ONE (04:00)
[2016-10-11] MEDS: NORMAL SALINE 1000 ML 1,000 ML IV SCH ×2 (04:08→06:28)
[2016-10-11] MEDS: HEPARIN SOD (PORCINE) 5,000 UNIT/ML 1 ML SYRINGE SUBCUT SCH ×2 (05:20→15:30)
[2016-10-11 07:48] LABS: ABSOLUTE LYMPHOCYTES (AUTO) 0.8 10^3/uL (0.5-4.7); ABSOLUTE MONOCYTES (AUTO) 0.1 10^3/uL (0.1-1.4); ABSOLUTE NEUT (AUTO) 4.3 10^3/uL (1.7-8.2); BASOPHILS % (AUTO) 0.6 % (0-2); EOSINOPHILS % (AUTO) 0.1 % (0-6); HEMATOCRIT 35.7 % (36.0-47.0); HEMOGLOBIN 12.4 g/dL (12.0-15.5); HGB HCT DIFFERENCE 1.5; LYMPHOCYTES % (AUTO) 15.5 % (13-45); MEAN CORPUSCULAR HEMOGLOBIN 31.1 pg (27.0-33.4); MEAN CORPUSCULAR HGB CONC 34.8 g/dL (32.0-36.0); MEAN CORPUSCULAR VOLUME 89 fl (80-97); RED BLOOD COUNT 3.99 10^6/uL (3.72-5.28); RED CELL DISTRIBUTION WIDTH 13.5 % (11.5-14.0); SEGMENTED NEUTROPHILS % (AUTO) 81.8 % (42-78); WHITE BLOOD COUNT 5.2 10^3/uL (4.0-10.5)
[2016-10-11 07:55] LABS: ALANINE AMINOTRANSFERASE 33 U/L (9-52); ALBUMIN 3.6 g/dL (3.5-5.0); ALKALINE PHOSPHATASE 67 U/L (38-126); ANION GAP 10 (5-19); ASPARTATE AMINO TRANSFERASE 28 U/L (14-36); BILIRUBIN,DIRECT 0.4 mg/dL (0.0-0.4); BILIRUBIN,TOTAL 1.4 mg/dL (0.2-1.3); BLOOD UREA NITROGEN 5 mg/dL (7-20); CALCIUM 8.7 mg/dL (8.4-10.2); CARBON DIOXIDE 23 mmol/L (22-30); CHLORIDE 109 mmol/L (98-107); CREATININE RESULT 0.71 mg/dL (0.52-1.25); GLUCOSE 127 mg/dL (75-110); SODIUM 141.6 mmol/L (137-145); TOTAL PROTEIN 6.5 g/dL (6.3-8.2)
[2016-10-11] MEDS: SULFASALAZINE 500 MG TABLET.DR PO SCH ×2 (08:27→15:30)
[2016-10-11 08:52] LABS: POTASSIUM 4.3 mmol/L (3.6-5.0)
[2016-10-11] MEDS ORDERED: METHYLPREDNISOLONE INJ 125 MG/2 ML SDV IV SCH (10:00)
--- NOTE | 2016-10-11 12:30 | PDOC CONSULTATION ---
Consultation Consult Date: 10/11/16 Attending physician:: DOMINIK SOSA Consult reason:: abdominal pain. abnormala CT scan. previous history of colon polyp History of Present Illness Admission Date/PCP: 10/11/16 00:21 History of Present Illness: patient was admitted from the ED presented with abdominal pain patient was seen about 1 year ago had colonoscopy done noted to have a polyp , tubular adenoma which is unusual for a 25 year at that time biopsies was negative for malignancy patient did have some mild terminal ileitis but there was no diagnosis of Crohn' s disease patient present with pain had CT scan with only IV contrast and no oral contrast has non specific thickening of the the area of IC valve, cecum and possible to hepatic flexure will need repeat colonoscopy not been having any symptoms that are consistent with Crohn,s no diarrhea no blood in her stools no weight loss appetite has been good Past Medical History Cardiac Medical History: Denies: Coronary Artery Disease, Myocardial Infarction, Hypertension Pulmonary Medical History: Denies: Asthma, Bronchitis, Chronic Obstructive Pulmonary Disease (COPD), Pneumonia Neurological Medical History: Denies: Seizures GI Medical History: Reports: Crohn's Disease, Gastroesophageal Reflux Disease Musculoskeltal Medical History: Denies: Arthritis Psychiatric Medical History: Reports: Tobacco Dependency Hematology: Reports: Anemia - IRON LOW Social History Lives with: Spouse/Significant other Smoking Status: Never Smoker Cigarettes Packs Per Day: 0.5 Number of Years Smokin Frequency of Alcohol Use: None Hx Recreational Drug Use: No Hx Prescription Drug Abuse: No Family History Family History: Reviewed & Not Pertinent Parental Family History Reviewed: Yes Children Family History Reviewed: Unknown Sibling(s) Family History Reviewed.: Unknown Medication/Allergy Home Medications: Vit#96/Ferrous Fum/FA [ Tablet] 1 tab PO DAILY 10/11/16 Allergies/Adverse Reactions: Latex, Natural Rubber Adverse Reaction (Intermediate, Verified 10/09/16 09:31) IRRITATION TO SKIN Review of Systems Constitutional: ABSENT: fever(s), headache(s), night sweats, weakness Eyes: ABSENT: visual disturbances Ears: ABSENT: hearing changes Nose, Mouth, and Throat: ABSENT: mouth pain, sore throat Cardiovascular: ABSENT: edema, orthropnea, palpitations Respiratory: ABSENT: dyspnea, hemoptysis Gastrointestinal: ABSENT: diarrhea, nausea, vomiting Genitourinary: ABSENT: dysuria, hematuria Musculoskeletal: ABSENT: deformity, joint swelling, muscle weakness Integumentary: ABSENT: lesions, pruritus Neurological: ABSENT: syncope, tingling, tremor(s), vertigo Endocrine: ABSENT: polydipsia, polyphagia, polyuria Hematologic/Lymphatic: ABSENT: easy bruising, lymphadenopathy Physical Exam Vital Signs: Temp Pulse Resp BP Pulse Ox 97.7 F 75 18 119/61 96 10/11/16 08:00 10/11/16 08:00 10/11/16 08:00 10/11/16 08:00 10/11/16 08:00 Intake & Output 10/10/16 10/11/16 10/12/16 06:59 06:59 06:59 Intake Total 250 Balance 250 Weight 69.9 kg General appearance: PRESENT: no acute distress, well-developed, well-nourished Head exam: PRESENT: atraumatic, normocephalic Eye exam: PRESENT: EOMI, PERRLA. ABSENT: nystagmus, periorbital swelling, scleral icterus Mouth exam: PRESENT: moist Throat exam: ABSENT: tonsillar exudate, tonsillogmegaly Neck exam: ABSENT: meningismus, tenderness, thyromegaly Respiratory exam: PRESENT: symmetrical, unlabored. ABSENT: tachypnea, wheezes Cardiovascular exam: PRESENT: RRR, +S1, +S2 GI/Abdominal exam: PRESENT: soft. ABSENT: Delgado's sign, rebound, rigid, tenderness Extremities exam: ABSENT: joint swelling Musculoskeletal exam: PRESENT: full ROM Neurological exam: PRESENT: oriented to time, oriented to situation, reflexes normal, CN II-XII grossly intact Skin exam: PRESENT: normal color. ABSENT: mottled, pallor, petechiae, urticaria , vesicles Results Laboratory Results: 10/11/16 04:15 10/11/16 04:15 10/11/16 10/11/16 04:15 04:15 WBC 5.2 RBC 3.99 Hgb 12.4 Hct 35.7 L MCV 89 MCH 31.1 MCHC 34.8 RDW 13.5 Plt Count 143 L Seg Neutrophils % 81.8 H Lymphocytes % 15.5 Monocytes % 2.0 L Eosinophils % 0.1 Basophils % 0.6 Absolute Neutrophils 4.3 Absolute Lymphocytes 0.8 Absolute Monocytes 0.1 Absolute Eosinophils 0.0 Absolute Basophils 0.0 Sodium 141.6 Potassium 4.3 D Chloride 109 H Carbon Dioxide 23 Anion Gap 10 BUN 5 L Creatinine 0.71 Est GFR ( Amer) > 60 Est GFR (Non-Af Amer) > 60 Glucose 127 H Calcium 8.7 Total Bilirubin 1.4 H AST 28 ALT 33 Alkaline Phosphatase 67 Total Protein 6.5 Albumin 3.6 Impressions: Abdomen/Pelvis CT 10/10/16 20:53 IMPRESSION: Diffuse thickening of the baires of the cecum and mass ending colon to the level of the hepatic flexure and thickening of the baires of the distal ileum extending proximally from the ileocecal valve. The appearance would suggest an inflammatory or infectious process. The possibility of Crohn's disease should be considered. Other findings as noted above Assessment & Plan - Diagnosis (1) Abnormal CT scan, colon Plan: CT scan done without oral contrast so will need colonoscopy for better evaluation will perform under Propofol sedation Risks, benefits and alternatives are discussed with the patient in detail she is willing to proceed denies any current illness to suggest and infection (2) Abdominal pain Qualifiers: Abdominal location: generalized Qualified Code(s): R10.84 - Generalized abdominal pain Is this a current diagnosis for this admission?: Yes Plan: while previous biopsies do indicate possible mild inflammation at the terminal ileum, patient does not have symptoms and by itself does not imply Crohn's disease (3) Adenomatous colon polyp Plan: unusual for someone her age, she would likely benefit from surveillance colonoscopy as well she is willing to proceed further recommendations to follow - Time Time Spent: 50 to 70 Minutes
[2016-10-11] MEDS ORDERED: BISACODYL 5 MG TABEC PO ONE ×2 (15:00→21:00)
[2016-10-11] MEDS ORDERED: MAGNESIUM CITRATE 296 ML BOTTLE PO ONE ×2 (15:00→21:00)
[2016-10-11 16:17] VITALS: BP 114/64
--- NOTE | 2016-10-11 16:39 | PDOC DISCHARGE SUMMARY ---
General - Admit/Disc Date/PCP Admission Date/Primary Care Provider: 10/11/16 00:21 Discharge Date: 10/11/16 - Discharge Diagnosis (1) Abdominal pain Is this a current diagnosis for this admission?: Yes Summary: Patient's CT scan shows diffuse ileitis. Dr Reeves saw the patient in consult and will do outpatient colonoscopy tomorrow. Will treat empirically with cipro and flagyl until colonoscopy (2) Diarrhea Summary: Intermittent. OTC lomotil (3) Hypokalemia Is this a current diagnosis for this admission?: Yes Summary: Repleted (4) Nausea and vomiting Is this a current diagnosis for this admission?: Yes Summary: REsolved - Additional Information Resuscitation Status: Full Code Home Medications: Ciprofloxacin HCl [Cipro 500 mg Tablet] 500 mg PO BID #20 tablet 10/11/16 Hydrocodone/Acetaminophen [Hydrocodon-Acetaminophen 5-325] 1 each PO Q4HP PRN # 20 tablet 10/11/16 Metronidazole [Flagyl 500 mg Tablet] 500 mg PO TID #30 tablet 10/11/16 Vit#96/Ferrous Fum/FA [ Tablet] 1 tab PO DAILY 10/11/16 History of Present Illness Patient complains of: Diffuse abdominal pain and diarrhea History of Present Illness: FAMILIA CUEVAS is a 26 year old female with a past medical history of Crohn' s disease and mixed diarrhea, constipation predominant irritable bowel syndrome. He has been her usual state of health until approximately 72 hours prior to presentation noting nausea vomiting and diarrhea unable to tolerate p.o. Contents of vomitus and diarrhea with without blood. She denies any new medications though dietary indiscretion she has not had a flare in approximately 5 years. In the emergency room she has a CT abdomen pelvis with marked inflammation of the cecum to the hepatic flexure strongly suggestive of Crohn's colitis. She started on IV Solu-Medrol and IV fluids and referred to the hospital for admission. Hospital Course Hospital Course: Patient was admitted to the telemetry floor. She was started on IV fluids and as needed analgesics. Consult was placed for gastroenterology. Dr. Gregory saw the patient in consult. Plan is for colonoscopy to be done tomorrow. The patient was going to stay and have it done and patient but due to her 's work schedule [facility] to be discharged. Dr. Gregory, feels that she can have her colonoscopy done as an outpatient. Prep was explained to the patient in detail by nursing staff. We will empirically cover her with Cipro and Flagyl and as needed oral analgesics. She will follow-up with GI tomorrow as an outpatient at 11:00 for outpatient colonoscopy. Physical Exam Vital Signs: Temp Pulse Resp BP Pulse Ox 97.4 F 53 L 17 110/63 98 10/11/16 11:01 10/11/16 11:01 10/11/16 11:01 10/11/16 11:01 10/11/16 11:01 Intake & Output 10/10/16 10/11/16 10/12/16 06:59 06:59 06:59 Intake Total 250 Balance 250 Weight 69.9 kg General appearance: PRESENT: no acute distress, well-developed, well-nourished Head exam: PRESENT: atraumatic, normocephalic Eye exam: PRESENT: conjunctiva pink, EOMI, PERRLA. ABSENT: scleral icterus Ear exam: PRESENT: normal external ear exam Mouth exam: PRESENT: moist, tongue midline Neck exam: ABSENT: carotid bruit, JVD, lymphadenopathy, thyromegaly Respiratory exam: PRESENT: clear to auscultation bere. ABSENT: rales, rhonchi, wheezes Cardiovascular exam: PRESENT: RRR. ABSENT: diastolic murmur, rubs, systolic murmur Pulses: PRESENT: normal dorsalis pedis pul Vascular exam: PRESENT: normal capillary refill GI/Abdominal exam: PRESENT: hyperactive bowel sounds - Generalized tenderness to palpation, soft, tenderness Rectal exam: PRESENT: deferred Extremities exam: PRESENT: full ROM. ABSENT: calf tenderness, clubbing, pedal edema Musculoskeletal exam: PRESENT: ambulatory Neurological exam: PRESENT: alert, awake, oriented to person, oriented to place , oriented to time, oriented to situation, CN II-XII grossly intact. ABSENT: motor sensory deficit Psychiatric exam: PRESENT: appropriate affect, normal mood. ABSENT: homicidal ideation, suicidal ideation Skin exam: PRESENT: dry, intact, warm. ABSENT: cyanosis, rash Results Laboratory Results: 10/11/16 04:15 10/11/16 04:15 10/11/16 10/11/16 04:15 04:15 WBC 5.2 RBC 3.99 Hgb 12.4 Hct 35.7 L MCV 89 MCH 31.1 MCHC 34.8 RDW 13.5 Plt Count 143 L Seg Neutrophils % 81.8 H Lymphocytes % 15.5 Monocytes % 2.0 L Eosinophils % 0.1 Basophils % 0.6 Absolute Neutrophils 4.3 Absolute Lymphocytes 0.8 Absolute Monocytes 0.1 Absolute Eosinophils 0.0 Absolute Basophils 0.0 Sodium 141.6 Potassium 4.3 D Chloride 109 H Carbon Dioxide 23 Anion Gap 10 BUN 5 L Creatinine 0.71 Est GFR ( Amer) > 60 Est GFR (Non-Af Amer) > 60 Glucose 127 H Calcium 8.7 Total Bilirubin 1.4 H AST 28 ALT 33 Alkaline Phosphatase 67 Total Protein 6.5 Albumin 3.6 Impressions: Abdomen/Pelvis CT 10/10/16 20:53 IMPRESSION: Diffuse thickening of the baires of the cecum and mass ending colon to the level of the hepatic flexure and thickening of the baires of the distal ileum extending proximally from the ileocecal valve. The appearance would suggest an inflammatory or infectious process. The possibility of Crohn's disease should be considered. Other findings as noted above Qualifiers PATEINT BEING DISCHARGED WITH ANY OF THE FOLLOWING DIAGNOSIS?: No Plan Discharge Plan: Home with Time Spent: Less than 30 Minutes
== END 2016-10-11 16:45 | disposition home or self-care (01) | DRG 392 ==
LOC: ER 19:25 → EH 10-11 00:21 → UNDOADMIN 10-11 00:28 → EH 10-11 00:28 → 4S 10-11 01:31
PROVIDERS: ADMIT Internal Medicine; ATTEND Internal Medicine
DX: R10.84 Generalized abdominal pain (principal); R11.2 Nausea with vomiting, unspecified; R19.7 Diarrhea, unspecified; E87.6 Hypokalemia; K21.9 Gastro-esophageal reflux disease without esophagitis; Z79.899 Other long term (current) drug therapy; Z87.19 Personal history of other diseases of the digestive system; Z83.71 Family history of colonic polyps; F17.210 Nicotine dependence, cigarettes, uncomplicated; Z91.040 Latex allergy status
CPT/HCPCS: 36415; 74177; 80053; 83690; 83735; 85025; 96361; 96374; 99285; J1644; J2270; J2930; J3480; J3490; J7030

== ENCOUNTER 2016-10-12 11:51 | Day surgery (SDC) | payer OTHER ==
[~2016-10-12 11:51] MED LIST: LIDOCAINE 2% INJ-PF (20 MG/ML) 10 ML AMPUL ONE; ONDANSETRON HCL INJ/PF 4 MG/2 ML SDV ONE
[2016-10-12] MEDS ORDERED: MIDAZOLAM 2 MG/2 ML INJ ONE (13:32)
[2016-10-12] MEDS ORDERED: PROPOFOL INJ 200 MG/20 ML VIAL IV ONE (13:32)
[2016-10-12] MEDS ORDERED: FENTANYL CITRATE INJ/PF 100 MCG/2 ML AMPUL ONE (13:32)
[2016-10-12] MEDS ORDERED: MORPHINE SULFATE 10 MG/ML INJ IV PRN (13:35)
[2016-10-12] MEDS ORDERED: MEPERIDINE HCL/PF INJ 25 MG/1 ML DISP.SYRIN IV PRN (13:35)
[2016-10-12] MEDS ORDERED: FENTANYL CITRATE INJ/PF 100 MCG/2 ML AMPUL IV PRN ×3 (13:35)
[2016-10-12] MEDS ORDERED: DIPHENHYDRAMINE HCL 50 MG/ML VIAL IV PRN (13:35)
[2016-10-12] MEDS ORDERED: PROMETHAZINE HCL INJ 25 MG/1 ML VIAL IV PRN ×2 (13:35)
[2016-10-12] MEDS ORDERED: OXYCODONE-ACETAMINOPHEN 5-325 MG TABLET PO PRN ×2 (13:35)
--- NOTE | 2016-10-12 14:18 | Operative Report ---
Operative Report DATE OF SURGERY: 10/12/16 Operative Report: The risks, benefits and alternatives of the procedure are explained to the patient detail and informed consent was obtained. The patient is taken to the operating room and placed in the left, lateral decubital position. Timeout was called. Propofol medications administered. A rectal examination was done which did not reveal any masses, tears or fissures. An Olympus video scope was inserted into the patient's rectum. The scope was then carefully advanced all the way to the cecum. The cecum was identified by the usual anatomical landmarks including the ileocecal valve as well as the appendiceal office. Intubation of the terminal ileum is done. The prep is good. The scope was then sequentially pulled back via the various segments of the colon including the ascending colon, hepatic flexure, transverse colon, splenic flexure, descending colon and finding to the rectosigmoid portions of the colon. Retroflexion maneuver was performed. PREOPERATIVE DIAGNOSIS: Abnormal CT scan POSTOPERATIVE DIAGNOSIS: Nodularity in the terminal ileum status post biopsy rule out Crohn's disease. Polyp in the cecum status post snare polypectomy. 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 Colonoscopy with biopsy SURGEON: DOMINIK SOSA ANESTHESIA: LMAC TISSUE REMOVED OR ALTERED: As described above. COMPLICATIONS: None. ESTIMATED BLOOD LOSS: None. INTRAOPERATIVE FINDINGS: As described above. Colon is normal PROCEDURE: Patient tolerated procedure well. No immediate postprocedure complications are noted. Patient discharged in good condition. Discharge date 10/12/2016. Discharge diet: Regular. Discharge activity: Regular. 2-3 week follow-up to discuss findings. Patient is instructed to call the office or proceed to the emergency room should there be any further problems or questions. We will wait on biopsies. We will see the patient back in follow-up once the results of the biopsies are available.
[2016-10-12 16:11] VITALS: BP 116/56
--- NOTE | 2016-10-23 13:41 | PDOC CONSULTATION ---
Consultation Consult Date: 10/12/16 Attending physician:: DOMINIK SOSA Consult reason:: patient presenting with abdominal pain and diarrhea. patient has history of colon polyp in the past. possible Crohn's disease. patient had to be discharged prior to her inpatient procedure. she returns for her procedure as an outpatient History of Present Illness History of Present Illness: FAMILIA CUEVAS is a 26 year old female Past Medical History Cardiac Medical History: Denies: Coronary Artery Disease, Myocardial Infarction, Hypertension Pulmonary Medical History: Denies: Asthma, Bronchitis, Chronic Obstructive Pulmonary Disease (COPD), Pneumonia Neurological Medical History: Denies: Seizures GI Medical History: Reports: Crohn's Disease, Gastroesophageal Reflux Disease Musculoskeltal Medical History: Denies: Arthritis Hematology: Reports: Anemia - IRON LOW Social History Smoking Status: Current Every Day Smoker Frequency of Alcohol Use: None Hx Recreational Drug Use: No Hx Prescription Drug Abuse: No Family History Family History: Reviewed & Not Pertinent Parental Family History Reviewed: Yes Children Family History Reviewed: Unknown Sibling(s) Family History Reviewed.: Unknown Medication/Allergy Home Medications: Ciprofloxacin HCl [Cipro 500 mg Tablet] 500 mg PO BID #20 tablet 10/11/16 Hydrocodone/Acetaminophen [Hydrocodon-Acetaminophen 5-325] 1 each PO Q4HP PRN # 20 tablet 10/11/16 Metronidazole [Flagyl 500 mg Tablet] 500 mg PO TID #30 tablet 10/11/16 Vit#96/Ferrous Fum/FA [ Tablet] 1 tab PO DAILY 10/11/16 Allergies/Adverse Reactions: Latex, Natural Rubber Adverse Reaction (Intermediate, Verified 10/12/16 12:13) IRRITATION TO SKIN Review of Systems Constitutional: ABSENT: fever(s), headache(s), night sweats, weakness Eyes: ABSENT: visual disturbances Ears: ABSENT: hearing changes Nose, Mouth, and Throat: ABSENT: sore throat Cardiovascular: ABSENT: edema, orthropnea, palpitations Respiratory: ABSENT: dyspnea, hemoptysis Gastrointestinal: PRESENT: diarrhea. ABSENT: dysphagia, heartburn, hematochezia , melena, nausea, vomiting Genitourinary: ABSENT: dysuria, hematuria Musculoskeletal: ABSENT: deformity, joint swelling Integumentary: ABSENT: lesions, pruritus Neurological: ABSENT: syncope, tingling, tremor(s), vertigo, weakness Endocrine: ABSENT: polydipsia, polyphagia, polyuria Hematologic/Lymphatic: ABSENT: easy bruising, lymphadenopathy Physical Exam Vital Signs: Temp Pulse Resp BP Pulse Ox 98.0 F 95 16 116/56 L 100 10/12/16 15:45 10/12/16 15:45 10/12/16 15:45 10/12/16 15:45 10/12/16 15:30 General appearance: PRESENT: no acute distress, well-developed, well-nourished Head exam: PRESENT: atraumatic, normocephalic Eye exam: PRESENT: EOMI, PERRLA. ABSENT: nystagmus, periorbital swelling, scleral icterus Mouth exam: PRESENT: moist, neck supple Throat exam: ABSENT: tonsillar exudate, tonsillogmegaly Neck exam: ABSENT: meningismus, tenderness, thyromegaly Respiratory exam: PRESENT: symmetrical, unlabored. ABSENT: tachypnea Cardiovascular exam: PRESENT: +S1, +S2 Pulses: PRESENT: normal carotid pulses GI/Abdominal exam: PRESENT: soft. ABSENT: Delgado's sign, rebound, rigid, tenderness Extremities exam: ABSENT: joint swelling Neurological exam: PRESENT: alert, awake, oriented to time, oriented to situation, reflexes normal, CN II-XII grossly intact Psychiatric exam: PRESENT: appropriate affect Skin exam: PRESENT: normal color. ABSENT: mottled, pallor, petechiae Assessment & Plan - Diagnosis (1) Abnormal CT scan, colon Plan: Possible Crohn's disease will need colonoscopy risks, benefits and alternatives are discussed with the patient in detail further recommendations to follow (2) Adenomatous colon polyp Plan: will need to repeat surveillance colonoscopy Risk,benefits and alternatives are discussed she is willing to proceed
== END 2016-10-12 16:00 | disposition home or self-care (01) ==
LOC: END 11:51
PROVIDERS: ATTEND Internal Medicine Gastroenterology
PROC: 0DBH8ZX Excision of Cecum, Via Natural or Artificial Opening Endoscopic, Diagnostic (ICD-10-PCS; principal; 2016-10-12 13:30)
PROC: 0DBC8ZX Excision of Ileocecal Valve, Via Natural or Artificial Opening Endoscopic, Diagnostic (ICD-10-PCS; 2016-10-12 13:30)
DX: D12.0 Benign neoplasm of cecum (principal); K52.9 Noninfective gastroenteritis and colitis, unspecified; K62.89 Other specified diseases of anus and rectum; K63.3 Ulcer of intestine; K21.9 Gastro-esophageal reflux disease without esophagitis; K50.90 Crohn's disease, unspecified, without complications; F17.210 Nicotine dependence, cigarettes, uncomplicated; D64.9 Anemia, unspecified; Z91.040 Latex allergy status
CPT/HCPCS: 45380; 45385; 81025; 88305 ×2; J2250; J3010; J2405; J2704; J3490; 810

== ENCOUNTER 2017-08-20 11:09 | Day surgery (SDC) | payer OTHER ==
[~2017-08-20 11:09] MED LIST changes: -LIDOCAINE 2% INJ-PF (20 MG/ML) 10 ML AMPUL ONE; -ONDANSETRON HCL INJ/PF 4 MG/2 ML SDV ONE; +PROPOFOL INJ 200 MG/20 ML VIAL IV ONE
--- NOTE | 2017-08-20 12:25 | Operative Report ---
Operative Report DATE OF SURGERY: 08/20/17 Operative Report: The risks benefits and alternatives of the procedure explained to the patient in detail and informed consent is obtained .A GIF Olympus video scope was inserted into the patient's mouth and hypopharynx, the esophagus is identified intubated and insufflated, the scope was then advanced through the esophagus stomach and duodenum, retroflexion maneuver is done, the esophagus stomach and first and second portions of the duodenum examined PREOPERATIVE DIAGNOSIS: Epigastric pain rule out peptic ulcer disease POSTOPERATIVE DIAGNOSIS: Gastritis status post biopsy to rule out Helicobacter pylori. No ulcers noted. Normal esophagus. First and second portion of the duodenum appeared normal OPERATION: EGD with biopsy SURGEON: DOMINIK SOSA ANESTHESIA: LMAC TISSUE REMOVED OR ALTERED: As noted above. COMPLICATIONS: None. ESTIMATED BLOOD LOSS: None. INTRAOPERATIVE FINDINGS: As noted above. PROCEDURE: Patient tolerated the procedure well. No immediate postprocedure complications are noted. Patient discharged in good condition. Discharge date 08/20/2017. Discharge diet: Regular. Discharge activity: Regular. 2-3-week follow-up to discuss findings. Patient is instructed to call the office should there be any further problems or questions. We will wait on the pathology.
[2017-08-20 12:32] VITALS: BP 114/71
== END 2017-08-20 12:35 | disposition home or self-care (01) ==
LOC: END 11:09
PROVIDERS: ATTEND Internal Medicine Gastroenterology
DX: K29.50 Unspecified chronic gastritis without bleeding (principal); F17.210 Nicotine dependence, cigarettes, uncomplicated
CPT/HCPCS: 43239; 88342 ×2; 88305 ×2; J2704; 731